=== PATIENT | female | born 1960 | race Caucasian/White ===

== ENCOUNTER → 2016-06-27 | Outpatient (CLI) | payer OTHER ==
--- NOTE | ~2016-06-27 | CT2 ---
[facility] A Service of [facility] RADIOLOGY TEXT RESULTS PATIENT: MICHAEL CONDON LOCATION: [facility] : 62 UNIT #: [id number] AGE: [address]: Anni Jernigan APRN SEX: F ORDER DR: [id number] [address] [address] [id number] MR#: [id number] Acc #: [id number] NAME: MICHAEL CONDON : 1960 SEX: F STUDY DATE/TIME: 06/27/2016 9:09 UNIT: [facility] ROOM: STUDY DESCRIPTION: CT Abd and Pelv W Cont Attending Physician: Anni Jernigan A.P.R.N. Ordering Physician: Anni Jernigan A.P.R.N. Primary Care Physician: Anni Jernigan A.P.R.N. MEDICAL IMAGING REPORT This report is preliminary unless electronic signature is present. EXAM CT abdomen and pelvis INDICATION Elevated LDH. Generalized abdominal pain in the mid abdomen. 2-month duration. TECHNIQUE CT of the abdomen and pelvis with p.o. and IV contrast. Coronal and sagittal reconstructions were obtained. This CT exam was performed with one or more of the following radiation dose reduction techniques: automatic exposure control, adjustment of mA and/or kV according to patient size, and iterative reconstruction. COMPARISON None available. FINDINGS The solid abdominal organs enhance normally. The gallbladder is not distended. No intrahepatic or extrahepatic biliary dilatation. The bowel is not dilated. There is no enlarged retroperitoneal or mesenteric lymph nodes. There is a moderate volume of stool throughout the colon. Appendix is normal. PELVIS: No pelvic mass. The uterus and ovaries are within normal limits. Bladder is decompressed. No enlarged pelvic or inguinal lymph nodes. No acute osseous abnormalities. IMPRESSION 1. No acute findings in the abdomen or pelvis. 2. Moderate volume of stool. Please correlate for any evidence of STS. [facility] A Service of [facility] RADIOLOGY TEXT RESULTS PATIENT: MICHAEL CONDON LOCATION: [facility] : 62 UNIT #: [id number] AGE: [address]: Anni Jernigan APRN SEX: F ORDER DR: constipation. Dictated by... Luis Fitch M.D. THIS IS AN ELECTRONICALLY VERIFIED REPORT Luis Fitch M.D. at 06/27/2016 3:42 PM SELVIN/tonie TD: 06/27/2016 09:53 JOB #: [id number] MEDICAL IMAGING REPORT Page 1 of 1
[2016-06-27 08:20] LABS: POC - CREATININE 0.78 mg/dL (0.44-1.03); POC - GFR >60.0 mL/min (>60)
== END | disposition home or self-care (01) ==
LOC: SCT 08:03
PROVIDERS: Nurse Practitioner
DX: R74.0 Nonspecific elevation of levels of transaminase and lactic acid dehydrogenase [LDH] (principal)
CPT/HCPCS: 74177; 82565; Q9967